=== PATIENT | female | born 1960 | race Caucasian/White ===

== ENCOUNTER 2024-08-08 21:31 | Emergency (ER) | payer MEDICARE, OTHER, SELFPAY ==
[2024-08-08 21:40] VITALS: BP 114/73
[2024-08-08 21:57] LABS: % Basophils 0.5 % (0-2); % Eosinophils 0.3 % (0-6); % Immature Granulocytes 0.3 % (0-0.5); % Lymphocytes 8.6 % (20.5-51.1); % Monocytes 7.2 % (1.7-9.3); % Neutrophils 83.1 % (42.2-75.2); Absolute Lymphocytes 0.5 10^3/uL (1.2-3.4); Absolute Monocytes 0.4 10^3/uL (0.1-0.6); Hematocrit 43.7 % (37.0-47.0); Hemoglobin 14.8 g/dL (12.0-16.0); Mean Corp Hgb Conc. 33.9 g/dL (33.0-37.0); Mean Corpuscular Hgb 30.9 pg (27.0-31.0); Mean Corpuscular Volume 91.2 fL (81.0-99.0); Mean Platelet Volume 9.6 fL (7.4-10.4); Nucleated Red Blood Cells % 0 %; Platelet Count 215 10^3/uL (130-400); Red Blood Cell Count 4.79 10^6/uL (4.20-5.40); Red Cell Dist. Width 13.5 % (11.5-14.5)
[2024-08-08 22:08] LABS: ALT (SGPT) 23 U/L (0-35); AST (SGOT) 27 U/L (14-36); Albumin 4.3 g/dl (3.5-5.0); Alkaline Phosphatase 77 U/L (38-126); Blood Urea Nitrogen 14 mg/dl (7-17); Calcium 9.2 mg/dl (8.4-10.2); Carbon Dioxide 25 mmol/L (22-30); Chloride 100 mmol/L (98-107); Glucose 101 mg/dl (70-99); Lipase 84 U/L (23-300); Potassium 3.1 mmol/L (3.5-5.1); Sodium 135 mmol/L (135-145); Total Bilirubin 0.7 mg/dl (0.2-1.3); eGFR > 60.00
[2024-08-08 22:46] VITALS: BP 120/78
[2024-08-08 23:00] VITALS: BP 107/57
[2024-08-08] MEDS: NSS 500 IV (23:55)
[2024-08-09] VITALS: BP 109/64
--- NOTE | 2024-08-09 01:27 | ED.GENMED ---
History of Present Illness
General
Chief Complaint: Abdominal Symptoms
Source: patient and spouse
Exam Limitations: none
Time Seen by Provider: 08/08/24 23:05
Nursing documentation reviewed up to this point in time: agreed with
History of Present Illness
History of Present Illness:
63-year-old female past medical history of hypertension hyperlipidemia presenting to the emergency department today with concerns of diarrhea throughout the day today has had some black low back pain started yesterday has had some intermittent back
pain more recently and has had an MRI but is unsure of the results. This was performed about 1 week ago. Noticed blood in her last episode of diarrhea which prompted her to come to the ER. Denies any chest pain shortness of breath any
lightheadedness. Patient denies any nausea vomiting, recent international travel or infectious disease exposures.
Past History
Past History
ED Past Medical History: HTN
Social History
Tobacco: Non-smoker
Personal:
Living: with family
Review of Systems
Review of Systems
Allergies reviewed?: Yes
All Other Systems: ROS reviewed and negative except as documented in HPI and ROS
Phy Exam
Physical Exam
Physical Exam:
GENERAL: Alert , in no apparent distress
EYE: pupils equal and reactive
NECK: Supple, no significant adenopathy.
ENT: o/p clr, mmm.
CARDIAC: Regular rate and rhythm .
LUNGS: Clear breath sounds bilaterally, no acute respiratory distress, no wheezes/rales/rhonchi
ABDOMEN: Soft, without focal tenderness, no r/g, no cvat
NEUROLOGICAL: Alert and oriented, no focal neuro deficits
SKIN: Warm and dry, skin intact.
MUSCULOSKELETAL: No edema, well perfused.
PSYCH: Normal and appropriate interaction.
Course
Orders/Labs/Results
Orders:
Orders
08/08/24 21:48
Complete Blood Count/With Diff Urgent
Comprehensive Metabolic Panel Urgent
Lipase Urgent
08/08/24 23:51
Stool Culture Urgent
NANCI Source: Feces/Stool
Specimen Description:
Date Specimen was Collected: 08/09/24
Time Specimen was Collected: 01:51
08/08/24 23:52
Urinalysis Reflex To Culture Urgent
Date Specimen was Collected: 08/09/24
Time Specimen was Collected: 01:51
0.9% Sodium Chloride 500 ml [Nss] 500 ml IV BOLUS
08/09/24
CT Abd/Pel (IV only)-DH only Urgent
Reason For Exam: low back low abd pain, bloody diarrhea
08/09/24 01:54
Urine Microscopic Reflex Cult Urgent
Abnormal Lab Results
08/08/24 08/09/24
21:48 01:54
Absolute Lymphs (auto) 0.5 L 10^3/uL
(1.2-3.4)
Neutrophils % 83.1 H %
(42.2-75.2)
Lymphocytes % 8.6 L %
(20.5-51.1)
Potassium 3.1 L mmol/L
(3.5-5.1)
Glucose 101 H mg/dl
(70-99)
Urine Ketones 1+ A
(Negative)
Urine Albumin (Reflex) 1+ A
(Neg - Trace)
08/08/24 21:48
08/08/24 21:48
Vital Signs
Initial and Last Documented VS:
Initial Vital Signs
Temp Pulse Resp BP Pulse Ox
98.3 F 73 16 114/73 99
08/08/24 21:40 08/08/24 21:40 08/08/24 21:40 08/08/24 21:40 08/08/24 21:40
Last Documented Vital Signs
Temp Pulse Resp BP Pulse Ox
98.3 F 73 16 109/64 98
08/08/24 21:40 08/08/24 21:40 08/08/24 21:40 08/09/24 00:00 08/09/24 00:15
MDM/Problems Addressed
MDM/Problems Addressed:
63-year-old female presenting with concerns of diarrhea throughout the day today started with some low back pain yesterday. Also noticed some blood in her last episode of diarrhea at home. Has at least 10 episodes at home. Here vital signs are
normal patient no distress very minimal discomfort to the lower abdomen mainly to the left side slightly low potassium level of 3.1. Rectal examination performed guaiac negative. Hemoglobin normal. Here CT scan without emergent findings. Patient
in no distress throughout ER stay. Urinalysis normal. Patient vies for symptomatic treatment at home return precautions given.
*Critical Care Note
Total Time (30-74mins, 75-104mins- exclusive of procedures): Not Applicable
ED Attending Note
-
Portions of this chart may have been created with voice recognition software.� Occasional wrong word or��sound alike� substitutions may have occurred due to the inherent limitations of voice recognition software.
Discharge Plan
Departure
Patient Disposition: Home (Routine Discharge)
Date of Disposition: 08/09/24
Time of Disposition: 03:32
Patient with high blood pressure during this ER visit?: No
Condition: Good
Covid-19: Not Applicable
Discharge Problem:
Diarrhea
Instructions: Diarrhea in teens and adults
Prescriptions:
No Action
simvastatin 20 MG tablet
10 mg PO HS
conjugated estrogens [Premarin] 1 APPLIC cream
1 applic vaginal SUTH
Patient Comments:
10/29/20 - PT USUALLY APPLIES ON SUNDAYS AND THURSDAYS
loratadine 10 MG tablet
10 mg PO DAILY
cholecalciferol (vitamin D3) 1,000 UNITS tablet
1,000 units PO DAILY
hydrochlorothiazide 12.5 MG tablet
12.5 mg PO HS
cranberry extract [Theracran] 650 MG capsule
650 mg PO DAILY
tretinoin microspheres [Retin-A Micro Pump] 50 GM gel with pump
1 applic topical Q48H
amoxicillin-pot clavulanate 1 TABLET tablet
1 tab PO [id number]
Patient Comments:
10/29/20 - PT STARTED THERAPY 10/28/20
Referrals:
Dewey Pitts MD [Family Provider] -
Activity Restrictions/Additional Instructions:
You came to the emergency department today with concerns of diarrhea and potential blood in the stool. Here you have a reassuring assessment. Please treat symptomatically over the next few days. Return for any worsening, new or concerning
symptoms.
Interventions
Interventions:
*General Assessment Last Done: 08/08/24 21:40
*Neglect/Abuse Screening Last Done: 08/08/24 21:40
RD-Wnvtze-Fmixuumqkh Assessment Last Done: 08/08/24 23:45
Discharge Date and Time
Print Language: HUNGARIAN
[2024-08-09 02:15] LABS: Urine Albumin 1+ (Neg - Trace); Urine Bilirubin Negative (Negative); Urine Character Clear (Clear); Urine Color Straw; Urine Glucose Negative (Negative); Urine Ketone 1+ (Negative); Urine Leukocyte Negative (Negative); Urine Nitrite Negative (Negative); Urine Occult Blood Negative (Negative); Urine Urobilinogen Negative (Neg - 1+)
[2024-08-09 02:34] LABS: Urine Red Blood Cell None Seen /HPF (0-2)
[2024-08-09 02:37] LABS: Urine White Cell 0-2 /HPF (0-5)
== END 2024-08-09 03:45 | disposition home or self-care (01) ==
LOC: EMR 21:31
PROVIDERS: Emergency Medicine; Physician Assistant; EMERGENCY PHYSICIAN Emergency Medicine; FAMILY PHYSICIAN Internal Medicine
DX: R19.7 Diarrhea, unspecified (principal); I10 Essential (primary) hypertension; E78.00 Pure hypercholesterolemia, unspecified
CPT/HCPCS: 99284; 74177; 80053; 81003; 81015; 83690; 85025; 87045; 87046; 87427; Q9967